=== PATIENT | male | born 1975 | race Hispanic/Latino ===

== ENCOUNTER 2021-12-08 18:04 | Emergency (ER) | payer OTHER ==
[~2021-12-08] VITALS: Ht 180.3 cm; Wt 106.6 kg
[2021-12-08] MEDS ORDERED: KETOROLAC TROMETHAMINE 60 MG/2 ML VIAL IM ONE (18:30)
[2021-12-08] MEDS ORDERED: LORAZEPAM INJ 2 MG/ML VIAL IV ONE (18:30)
[2021-12-08] MEDS ORDERED: AUGMENTIN 500-1 EACH PO (19:40)
[2021-12-08] MEDS ORDERED: ULTRAM 50MG50 MG PO (19:40)
[2021-12-08] MEDS ORDERED: TETANUS/DIPHTHERIA TOX ADULT 0.5 ML SYR IM ONE (19:45)
[2021-12-08] MEDS ORDERED: BACITRACIN ZINC 0.9GM TP ONE (20:11)
[2021-12-08 21:46] VITALS: BP 130/77
== END 2021-12-08 20:30 | disposition home or self-care (01) ==
LOC: ER 18:12
DX: S81.851A Open bite, right lower leg, initial encounter (principal); W54.0XXA Bitten by dog, initial encounter; Y99.0 Civilian activity done for income or pay; Y92.242 Post office as the place of occurrence of the external cause
CPT/HCPCS: 73590; 90471; 90714; 99283; J1885